=== PATIENT | male | born 1980 | race Caucasian/White ===

== ENCOUNTER 2018-03-03 16:19 | Emergency (ER) | payer OTHER ==
[2018-03-03 16:27] VITALS: BP 123/75
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
== END 2018-03-03 17:15 | disposition home or self-care (01) ==
DX: S16.1XXA Strain of muscle, fascia and tendon at neck level, initial encounter (principal); V47.1XXA Car passenger injured in collision with fixed or stationary object in nontraffic accident, initial encounter